=== PATIENT | male | born 1990 ===

== ENCOUNTER 2019-02-14 20:20 | Emergency (ER) | payer SELFPAY ==
[2019-02-14] MEDS ORDERED: Ondansetron ODT 4 MG TAB ONE (20:56)
[2019-02-14 21:06] LABS: #Basophils 0.1 thou/uL (0.0-0.2); #Eosinphils 0.2 thou/uL (0.0-0.7); #Lymphocytes 2.7 thou/uL (1.20-3.40); #Monocytes 0.6 thou/uL (0.11-0.59); #Neutrophils 3.1 thou/uL (1.40-6.50); %Basophils 1.1 % (0.0-1.0); %Eosinophils 3.1 % (0.0-10.0); %Lymphocytes 39.9 % (21.0-51.0); %Monocytes 9.6 % (0.0-10.0); %Neutrophils 46.4 % (42.0-75.0); Hemoglobin 15.9 g/dL (14.0-18.0); Mean Corpuscular HGB CONC 34.9 g/dL (32.0-36.0); Mean Corpuscular Hemoglobin 29.9 pg (27.0-31.0); Mean Corpuscular Volume 85.7 fL (78.0-98.0); Mean Platelet Volume 7.1 fL (7.4-10.4); Platelet Count 298 thou/uL (130-400); RBC Distribution Width 11.3 % (11.5-14.5); White Blood Cell (WBC) Count 6.7 thou/uL (4.8-10.8)
[2019-02-14 21:30] LABS: ALT (SGPT) 36 U/L (8-55); AST (SGOT) 24 U/L (5-34); Albumin 4.8 g/dL (3.5-5.0); Alkaline Phosphatase 45 U/L (40-110); Anion Gap 13 mmol/L (10-20); BUN (Urea Nitrogen) 15 mg/dL (8.9-20.6); Bilirubin, Total 4.1 mg/dL (0.2-1.2); Calc. Creatinine Clearance 0 mL/min (70-130); Calcium 9.9 mg/dL (7.8-10.44); Carbon Dioxide 29 mmol/L (22-29); Chloride 101 mmol/L (98-107); Estimated GFR-MDRD 89; Globulin 2.9 g/dL (2.4-3.5); Glucose 143 mg/dL (70-105); Lipase 45 U/L (8-78); Potassium 3.5 mmol/L (3.5-5.1); Protein, Total 7.7 g/dL (6.0-8.3); Sodium 139 mmol/L (136-145)
--- NOTE | 2019-02-14 23:12 | ULT ---
EXAM: US Gallbladder RUQ CLINICAL HISTORY: Nausea. Vomiting.. COMPARISON: None. FINDINGS: Pancreas: The head of the pancreas has a normal echotexture. The remainder of the pancreas is obscur ed. Liver:Normal hepatic parenchymal echotexture. No hepatic masses or intrahepatic biliary dilatation. T he contour of the hepatic margins maintained. 17.2 cm right hepatic lobe Gallbladder: No sonographic evidence of cholelithiasis, gallbladder wall thickening or pericholecysti c fluid Willard's sign:Not commented upon Portal Vein: Patent. Appropriate directional flow Bile ducts: Common bile duct diameter 0.3 cm Right kidney: No hydronephrosis. Right kidney measures 10.9 cm cm in length. IMPRESSION: Unremarkable exam.
== END 2019-02-14 23:49 | disposition home or self-care (01) ==
LOC: ERS 20:20
DX: R14.2 Eructation (principal); E80.6 Other disorders of bilirubin metabolism
CPT/HCPCS: 36415; 76705; 80053; 83690; 85025; 96372; J0500; Q0162